=== PATIENT | male | born 1980 | race Caucasian/White ===

== ENCOUNTER → 2017-09-27 | Outpatient (CLI) | payer OTHER ==
[~2017-09-27] MED LIST: BUPROPION HCL150 M2 PO; GABAPENTIN300 MG PO; LEVAQUIN250 MG PO; LEXAPRO10 MG PO; NEURONTIN300 MG PO; OMNARIS12.5 GM IH; PRINIVIL10 MG PO; PROAIR HFA8.5 GM IH; RANITIDINE HCL300 MG PO; TYLENOL EXTRA500 MG PO; WELLBUTRIN XL150 MG PO
== END | disposition home or self-care (01) ==
LOC: OPR 09-25 08:00 → EDSTATUS 13:00
PROC: 07D23ZX Extraction of Left Neck Lymphatic, Percutaneous Approach, Diagnostic (ICD-10-PCS; principal; 2017-09-27)
DX: R59.0 Localized enlarged lymph nodes (principal); I10 Essential (primary) hypertension; K21.9 Gastro-esophageal reflux disease without esophagitis; M25.50 Pain in unspecified joint; R53.83 Other fatigue
CPT/HCPCS: 76536; 77012; 85610; 85730; 88305

== ENCOUNTER → 2017-10-13 | Outpatient (CLI) | payer OTHER ==
[~2017-10-13] MED LIST changes: +BUSPIRONE HCL5 MG PO
[2017-10-16 15:45] LABS: Flow Clinical Information NOT PROVIDED (()); Flow Number of Markers 22 (()); Flow Spec Viability 73 % (()); Flow Spec Viability 87 % (())
== END | disposition home or self-care (01) ==
LOC: OPR 08:00 → RAD 08:59 → OPR 09:00 → EDSTATUS 09:00
PROVIDERS: Surgery
DX: R59.0 Localized enlarged lymph nodes (principal); R22.1 Localized swelling, mass and lump, neck
CPT/HCPCS: 76942; 88305